=== PATIENT | female | born 1985 | race Caucasian/White ===

== ENCOUNTER → 2016-09-08 | Outpatient (CLI) | payer BC ==
[2016-09-09 13:45] LABS: Gliadin AB IgA, Deaminated 5 UNITS (<20); Gliadin AB IgG, Deaminated 7 UNITS (<20)
[2016-09-17 16:28] LABS: Mis test requested (Blood) Celiac Disease
== END | disposition home or self-care (01) ==
LOC: LABWHC1 12:57
PROVIDERS: ATTEND Allergy & Immunology
DX: R10.9 Unspecified abdominal pain (principal)
CPT/HCPCS: 36415; 81376; 81383; 82306; 83516

== ENCOUNTER → 2019-01-13 | Outpatient (CLI) | payer BC | END | disposition home or self-care (01) | LOC: LABWHC1 16:49 | PROVIDERS: ATTEND Dermatology Dermatopathology | DX: L70.0 Acne vulgaris (principal); Z79.899 Other long term (current) drug therapy | CPT/HCPCS: 36415; 84132 ==

== ENCOUNTER → 2020-04-10 | Outpatient (CLI) | payer BC | END | disposition home or self-care (01) | LOC: LABWHC1 11:50 | PROVIDERS: ATTEND Obstetrics & Gynecology Obstetrics | DX: N92.5 Other specified irregular menstruation (principal) | CPT/HCPCS: 36415; 84144; 84702 ==

== ENCOUNTER → 2020-04-12 | Outpatient (CLI) | payer BC | END | disposition home or self-care (01) | LOC: LABWHC1 11:04 | PROVIDERS: ATTEND Obstetrics & Gynecology Obstetrics | DX: N92.5 Other specified irregular menstruation (principal) | CPT/HCPCS: 36415; 84702 ==

== ENCOUNTER 2020-12-18 16:17 | Inpatient (IN) | payer BC ==
[2020-12-18] MEDS ORDERED: CARBOPROST TROMETHAMINE 250 MCG/ML 1 ML AMP IM PRN (16:24)
[2020-12-18] MEDS ORDERED: LIDOCAINE 0.5% (PF) 5 MG/ML (50 ML SDV) SQ PRN (16:24)
[2020-12-18] MEDS ORDERED: METHYLERGONOVINE 0.2 MG/ML 1 ML AMP IM PRN (16:24)
[2020-12-18] MEDS ORDERED: TERBUTALINE 1 MG/ML VIAL SQ PRN (16:24)
[2020-12-18] MEDS ORDERED: OXYTOCIN 10 UNIT/ML 1 ML VIAL IM PRN (16:24)
[2020-12-18] MEDS ORDERED: DINOPROSTONE 10 MG INSERT.ER VAGINAL ONE (16:26)
[2020-12-18] MEDS ORDERED: OXYTOCIN 30 UNITS/500 ML NS 30 UNIT in SALINE 1 500ML.BAG IV SCH (16:30)
[2020-12-18] MEDS ORDERED: BUTORPHANOL 1 MG/ML 1 ML VIAL IV PRN (16:30)
--- NOTE | 2020-12-18 16:45 | P.HPOB ---
History of Present Illness H&P Date: 12/18/20 Chief Complaint: IUP @ 40 0/7 weeks This is a -year-old 1 para 0 at 40-0/7 weeks with an estimated due date of 12/18. Patient presents from the office after being seen for routine visit. Ultrasound was completed at her visit today revealing an est imated weight of 8 lbs. 15 oz. within normal amniotic fluid index of 21. Patient states she's been kenji irregularly and wishes induction of labor. She does note good movement denies loss of fluid or vaginal bleeding. Patient has been receiving routine care with myself which has been essentially uncomplicated. blood work revealing a blood type of A-, rubella status immune, RPR nonreactive,Hep B surface antigen negative, group beta strep culture was negative. Review of Systems Constitutional: Denies chills, Denies fatigue, Denies fever Ears, nose, mouth and throat: Denies headache Cardiovascular: Denies leg edema Respiratory: Denies dyspnea Gastrointestinal: Denies nausea, Denies vomiting Genitourinary: Reports Medications and Allergies Home Medications Medication Instructions Recorded Confirmed Type Cetirizine HCl [Zyrtec] 10 mg PO DAILY 12/18/20 12/18/20 History Pnv No.95/Ferrous Fum/Folic AC 1 tab PO DAILY 12/18/20 12/18/20 History [ Multivitamin Tablet] Allergies Allergy/AdvReac Type Severity Reaction Status Date / Time No Known Allergies Allergy Verified 12/18/20 16:30 Exam Osteopathic Statement: *. No significant issues noted on an osteopathic structural exam other than those noted in the History and Physical/Consult. Targeted physical exam is performed in this date and sterile tech a well-nourished well-developed female in no acute distress, breathing is nonlabored, heart has a regular rate and rhythm, abdomen is gravid and appropriate for gestational age, heart tones were noted to be category 2 in the office with a biophysical profile of 8 out of 8. Patient is noting irregular contractions. On cervical exam she is 1/thick/-3 station vertex presentation by ultrasound. Cervidil is placed without difficulty Assessment and Plan (1) Term Current Visit: Yes Status: Acute Code(s): Z34.90 - ENCNTR FOR SUPRVSN OF NORMAL , UNSP, UNSP TRIMESTER SNOMED Code(s): 47210534 Plan: at 40-0/7 weeks that presents for Cervidil induction of labor. Induction of labor is discussed with the patient in detail and questions are answered. Stadol is offered for analgesia through the night. Epidural is discussed.
[2020-12-18 17:17] LABS: Basophils % (A) 0 %; Eosinophils # (A) 0.3 k/uL (0-0.7); Eosinophils % (A) 2 %; HCT 34.6 % (34.0-46.0); HGB 11.5 gm/dL (11.4-16.0); Lymphocytes # (A) 2.3 k/uL (1.0-4.8); Lymphocytes % (A) 20 %; MCH 27.2 pg (25.0-35.0); MCHC 33.1 g/dL (31.0-37.0); MCV 82.2 fL (80.0-100.0); Mean Platelet Volume 8.7; Monocytes # (A) 0.6 k/uL (0-1.0); Monocytes % (A) 5 %; Neutrophils # (A) 8.4 k/uL (1.3-7.7); Neutrophils % (A) 72 %; Platelet Count 267 k/uL (150-450); RBC 4.21 m/uL (3.80-5.40); RDW 14.5 % (11.5-15.5); WBC 11.8 k/uL (3.8-10.6)
[2020-12-19] MEDS ORDERED: LIDOCAINE 0.5% (PF) 5 MG/ML (50 ML SDV) SQ PRN (04:51)
[2020-12-19] MEDS ORDERED: CARBOPROST TROMETHAMINE 250 MCG/ML 1 ML AMP IM PRN (04:51)
[2020-12-19] MEDS ORDERED: OXYTOCIN 10 UNIT/ML 1 ML VIAL IM PRN (04:51)
[2020-12-19] MEDS ORDERED: METHYLERGONOVINE 0.2 MG/ML 1 ML AMP IM PRN (04:51)
[2020-12-19] MEDS ORDERED: TERBUTALINE 1 MG/ML VIAL SQ PRN (04:51)
[2020-12-19] MEDS ORDERED: LACTATED RINGERS 1,000 ML IV SCH (05:00)
[2020-12-19] MEDS: LACTATED RINGERS 1,000 ML IV SCH ×6 (05:32→15:37)
[2020-12-19] MEDS ORDERED: SODIUM CHLORIDE 0.9% 100 ML BAG ONE (08:35)
[2020-12-19] MEDS ORDERED: ROPIVACAINE 5MG/ML 20ML VIAL ONE (08:35)
[2020-12-19] MEDS ORDERED: fentaNYL (PF) 50 MCG/ML 5 ML AMP ONE (08:35)
[2020-12-19] MEDS ORDERED: CITRIC ACID-SODIUM CITRATE 15 ML CUP PO ONE (10:44)
[2020-12-19] MEDS ORDERED: MORPHINE SULFATE (PF) 0.3 MG/0.3 ML SYR ONE (11:01)
[2020-12-19] MEDS ORDERED: ONDANSETRON 4 MG/2 ML VIAL ONE (11:01)
[2020-12-19] MEDS ORDERED: CHLOROPROCAINE 3% 30 MG/ML 20 ML VIAL ONE (11:01)
[2020-12-19] MEDS ORDERED: OXYTOCIN 10 UNIT/ML 1 ML VIAL ONE (11:01)
[2020-12-19] MEDS ORDERED: NALOXONE 0.4 MG/ML 1 ML VIAL IV PRN (11:43)
[2020-12-19] MEDS ORDERED: diphenhydrAMINE 50 MG CAP PO PRN (11:43)
[2020-12-19] MEDS ORDERED: ZOLPIDEM 5 MG TAB PO PRN (11:43)
[2020-12-19] MEDS ORDERED: diphenhydrAMINE 50 MG/ML 1 ML VIAL IVP PRN ×2 (11:43)
[2020-12-19] MEDS ORDERED: ONDANSETRON 4 MG/2 ML VIAL IVP PRN (11:43)
[2020-12-19] MEDS ORDERED: diphenhydrAMINE 25 MG CAP PO PRN (11:43)
[2020-12-19] MEDS ORDERED: SIMETHICONE 80 MG CHEWABLE PO PRN (11:43)
[2020-12-19] MEDS ORDERED: METOCLOPRAMIDE 5 MG/ML 2 ML VIAL IVP PRN (11:43)
[2020-12-19] MEDS ORDERED: OXYTOCIN 30 UNITS/500 ML NS 30 UNIT in SALINE 1 500ML.BAG IV SCH (11:45)
--- NOTE | 2020-12-19 11:51 | P.OP ---
Date of Procedure: 12/19/20 Preoperative Diagnosis: IUP at 40 and one sevenths weeks, nonreassuring heart tones Postoperative Diagnosis: Same plus unstable lie Procedure(s) Performed: Primary low transverse section Anesthesia: epidural Surgeon: Karen Mauricio Wardrobe Stylist #1: Minerva Adam Estimated Blood Loss (ml): 250 IV fluids (ml): 1,000 Urine output (ml): 200 Pathology: other (Placenta) Condition: stable Disposition: observation Indications for Procedure: This is a 35-year-old at 40 1/7 weeks that was admitted last night for Cervidil induction of labor. Patient had noted variables on her NST in the office but a biophysical profile of 8 over 8 was noted. Patient was admitted and Cervidil induction was begun. Patient did well overnight heart tones noted to be category 1. Patient had her Cervidil removed early this morning and Pitocin augmentation of labor was begun. Occasional late was appreciated. Amniotomy was performed clear fluid was obtained. Patient did become quite uncomfortable and did request epidural placement. Epidural was placed without difficulty by the anesthesia department. Soon afterwards patient was noted to have a deceleration for approximate 4 minutes with return to baseline. Patient then proceeded to have chronic lates and decision was made for primary secondary to nonreassuring heart tones. Operative Findings: Normal uterus is appreciated. Viable female infant delivered at 1117, weight of 7 lbs. 8 oz. and Apgars of 9 and 9 at one and 5 minutes respectively. Of note patient was noted to be in the vertex presentation upon delivery through the uterine incision did transitioned to a shoulder presentation, was converted back to a vertex presentation and delivered without difficulty. Description of Procedure: Patient was taken back to the operating suite where epidural anesthesia was found be adequate. She was then prepped and draped in normal sterile fashion in the dorsal supine position. A Pfannenstiel skin incision was made with the scalpel and carried through to the underlying layer of fascia. The fascia was then incised in the midline and the incision was extended laterally. The superior aspect of the fascial incision was then grasped diana clamps, elevated and underlying rectus muscles dissected off sharply. Attention was then turned to the inferior aspect of the fascial incision which was grasped with Grimes clamps, elevated and underlying rectus muscles dissected off sharply once again. The rectus muscles were in the midline the peritoneum was identified and entered. The bladder blade was then inserted into the pelvis. The vesicouterine peritoneum was identified and the bladder flap was created using sharp and blunt dissection. Hysterotomy incision was performed and clear fluid was obtained the infant was noted to be initially in the vertex presentation and upon attempts to delivery was transitioned to a shoulder presentation was moved back to the vertex presentation vacuum was applied and it was delivered in a vertex presentation. The umbo cord was doubly clamped and cut and the infant was handed off to awaiting RN spontaneous cry at was noted. The placenta was then removed manually and the uterus was cleared of all clots and debris. The uterine incision was closed with 0 Vicryl in a running locked fashion. A second imbricating suture was reported performed. Hemostasis was appreciated. The gutters were cleared of all clots and debris. The bladder was noted to be intact and away from the operating field. This draining clear yellow urine. The rectus muscles were loosely reapproximated along with the peritoneum the rectus muscles were inspected and hemostatic. The fascia was closed with 0 Vicryl in a running fashion from one lateral edge the other. The subcutaneous tissue was then irrigated and found to be hemostatic the subcutaneous tissues closed with 3-0 Vicryl in a running fashion. The skin was closed with 4-0 Vicryl in a subcuticular fashion. Steri-Strips and sterile dressings were applied. All counts were noted be correct 2 at the end of procedure. Patient and infant tolerated delivery well and are resting comfortably.
[2020-12-19] MEDS: ACETAMINOPHEN IV (For NPO) 1,000 MG in EMPTY BAG 1 BAG IVPB SCH ×2 (12:38→18:00)
[2020-12-19] MEDS: ACETAMINOPHEN TAB 500 MG TAB PO SCH (14:39)
[2020-12-19] MEDS: IBUPROFEN 600 MG TAB PO SCH (14:39)
[2020-12-19] MEDS: SENNOSIDES-DOCUSATE SODIUM 1 EACH TAB PO SCH (20:14)
[2020-12-19] MEDS: IBUPROFEN IV 800 MG in SODIUM CHLORIDE 0.9% 250 ML IV SCH (22:02)
[2020-12-20] MEDS: LACTATED RINGERS 1,000 ML IV SCH (00:32)
[2020-12-20] MEDS: ACETAMINOPHEN TAB 500 MG TAB PO SCH ×4 (00:43→16:05)
[2020-12-20] MEDS: IBUPROFEN IV 800 MG in SODIUM CHLORIDE 0.9% 250 ML IV SCH ×2 (00:44→07:16)
[2020-12-20] MEDS: IBUPROFEN 600 MG TAB PO SCH ×4 (00:46→18:48)
[2020-12-20 06:29] LABS: Basophils % (A) 0 %; Eosinophils # (A) 0.2 k/uL (0-0.7); Eosinophils % (A) 2 %; HCT 31.5 % (34.0-46.0); HGB 10.7 gm/dL (11.4-16.0); Lymphocytes # (A) 2.3 k/uL (1.0-4.8); Lymphocytes % (A) 16 %; MCHC 34.1 g/dL (31.0-37.0); MCV 84.9 fL (80.0-100.0); Mean Platelet Volume 8.5; Monocytes # (A) 0.7 k/uL (0-1.0); Monocytes % (A) 5 %; Neutrophils # (A) 11.2 k/uL (1.3-7.7); Neutrophils % (A) 77 %; Platelet Count 197 k/uL (150-450); RBC 3.71 m/uL (3.80-5.40); RDW 14.4 % (11.5-15.5); WBC 14.6 k/uL (3.8-10.6)
[2020-12-20] MEDS: SENNOSIDES-DOCUSATE SODIUM 1 EACH TAB PO SCH ×2 (08:02→23:32)
--- NOTE | 2020-12-20 09:19 | P.PNOBGPC ---
Subjective - Subjective Principal diagnosis: POD 1 LTCS NRFHTs Interval history: Patient did well overnight. She is ambulating and voiding without difficulty. She is tolerating clear liquids without nausea or vomiting and is requesting regular diet as she is hungry. She states her pain is well-controlled. Her lochia is minimal. She is struggling with breast-feeding somewhat. Patient reports: Reports appetite normal, Reports voiding normally, Reports pain well controlled, Reports ambulating normally : doing well, nursing well Objective - Vital Signs Latest vital signs: Vital Signs Temp Pulse Resp BP Pulse Ox 12/20/20 03:54 97.8 F 75 16 128/76 97 12/20/20 00:00 98 F 82 16 143/78 98 12/19/20 20:00 98.8 F 87 16 122/69 97 12/19/20 16:00 98.2 F 91 16 124/68 97 12/19/20 13:45 98.5 F 67 16 157/74 100 12/19/20 13:15 85 16 146/69 12/19/20 12:45 92 16 116/57 98 12/19/20 12:30 92 16 84/51 98 12/19/20 12:15 88 16 85/46 97 12/19/20 12:00 83 16 80/47 97 12/19/20 11:45 97.2 F L 86 16 100/47 98 Intake and Output 12/19/20 12/20/20 12/20/20 22:59 06:59 14:59 Intake Total 450 Output Total 950 250 Balance -950 200 Intake: IV 250 Oral 200 Output: Urine 950 250 Uretheral (Zavala) 200 Other: # Voids 1 - Exam Extremities: Present: normal, edema Abdomen: Present: normal appearance, soft Incision: Present: normal, dry, intact Uterus: Present: normal, firm - Labs Labs: Abnormal Lab Results - Last 24 Hours (Table) 12/20/20 Range/Units 06:06 WBC 14.6 H (3.8-10.6) k/uL RBC 3.71 L (3.80-5.40) m/uL Hgb 10.7 L (11.4-16.0) gm/dL Hct 31.5 L (34.0-46.0) % Neutrophils # 11.2 H (1.3-7.7) k/uL Assessment and Plan (1) Term Current Visit: Yes Status: Acute Code(s): Z34.90 - ENCNTR FOR SUPRVSN OF NORMAL , UNSP, UNSP TRIMESTER SNOMED Code(s): 61215240 (2) Non-reassuring electronic monitoring tracing Current Visit: Yes Status: Acute Code(s): O36.8390 - MATERN CARE FOR ABNLT FETL HRT RATE OR RHYM, UNSP TRI, UNSP SNOMED Code(s): 351105182 (3) S/P section Current Visit: Yes Status: Acute Code(s): Z98.891 - HISTORY OF UTERINE SCAR FROM PREVIOUS SURGERY SNOMED Code(s): 720599091 Plan: 35-year-old 1 now para 1 status post primary for nonreassuring heart tones. Patient is doing well postoperatively we will encourage increased ambulation today, advance diet and anticipate discharge home tomorrow.
--- NOTE | 2020-12-20 10:02 | P.PN ---
Progress Note - Text Progress Note Date: 12/20/20 35 y/o post-op day #1 C/S under epidural catheter. Preservative free duramorph injected in epidural catheter prior to its removal for post-op pain management. Patient up and doing well. Some pruritis over night which is resolving. Patient denies any nausea, lower extremity numbness/paresthesia/weakness. Pleased with pain management. Will follow up as indicated.
[2020-12-21] MEDS: IBUPROFEN 600 MG TAB PO SCH ×2 (00:06→06:27)
[2020-12-21] MEDS: ACETAMINOPHEN TAB 500 MG TAB PO SCH ×3 (03:36→11:33)
[2020-12-21 08:11] VITALS: BP 129/81; PULSE 81; RESP 18; TEMP 98.1
[2020-12-21] MEDS: SENNOSIDES-DOCUSATE SODIUM 1 EACH TAB PO SCH (08:22)
--- NOTE | 2020-12-21 08:58 | P.DS ---
Providers Date of admission: 12/18/20 16:17 Expected date of discharge: 12/21/20 Attending physician: Karen Mauricio Primary care physician: Stated None Hospital Course: This is a 35-year-old white female 1 para 0 EDC 5 07/29/1938 weeks gestation who presented for induction for term . Blood pressure on admission 141/92, blood type A-, rubella status immune. Group B strep cultures negative. Please see dictated history and physical for details. Artificial amniorrhexis revealed clear fluid. Oxytocin was started and titrated per hospital protocol. Nonreassuring heart tones were encountered and therefore the decision was made by the primary electronic lab technician to proceed with low transverse section. She gave to a liveborn female with scores of 9 and 9 at one and 5 minutes respectively. weighed 3400 g or 7 lbs. 8 oz. Estimated blood loss of 250 mL's. The head was delivered with a vacuum extractor, please see dictated operative note for details. This morning the patient and her baby are doing well. The patient is voiding, ambulate in, passing flatus without difficulty. Vital signs are stable and she is afebrile. Incision is clean and dry, Steri-Strips applied. Fundus is firm and in the midline, symmetric, 18-20 week size. Lochia rubra is minimal to moderate. Pain is well tolerated. Breasts are not engorged. Breast-feeding is going well. Patient is judged to be in very good condition for discharge home. She will follow-up in the office with her primary electronic lab technician in 2 weeks. She is reminded no intercourse, tampons or douching. I am advising her to use Advil, Motrin or Aleve as needed for pain. She can alternate this with Tylenol if needed. She will call with any fevers shakes or chills, foul smelling or copious lochia, with the passage of large blood clots, with any pain not alleviated by [id number] products, or indeed with any concerns. [place] will follow-up with php lamp developer as per recommendations. Assessment: Doing well second postoperative day Patient Condition at Discharge: Good Plan - Discharge Summary Discharge Rx Participant: No New Discharge Prescriptions: No Action Pnv No.95/Ferrous Fum/Folic AC [ Multivitamin Tablet] 1 tab PO DAILY Cetirizine HCl [Zyrtec] 10 mg PO DAILY Discharge Medication List Cetirizine HCl [Zyrtec] 10 mg PO DAILY 12/18/20 [History] Pnv No.95/Ferrous Fum/Folic AC [ Multivitamin Tablet] 1 tab PO DAILY 12/18/20 [History] Follow up Appointment(s)/Referral(s): Karen Mauricio DO [Doctor of Osteopathic Medicine] - 2 Weeks Discharge Disposition: HOME SELF-CARE
== END 2020-12-21 11:30 | disposition home or self-care (01) | DRG 788 ==
LOC: 4FBP 16:17
PROVIDERS: ADMIT Obstetrics & Gynecology Obstetrics; ATTEND Obstetrics & Gynecology Obstetrics
PROC: 10D00Z1 Extraction of Products of Conception, Low, Open Approach (ICD-10-PCS; principal; 2020-12-19 11:00)
DX: O32.0XX0 Maternal care for unstable lie, not applicable or unspecified (principal); L29.9 Pruritus, unspecified; O32.2XX0 Maternal care for transverse and oblique lie, not applicable or unspecified; O76 Abnormality in fetal heart rate and rhythm complicating labor and delivery; Z37.0 Single live birth; Z3A.40 40 weeks gestation of pregnancy
CPT/HCPCS: 85025; 86850; 86900; 86901; 88307

== ENCOUNTER → 2023-08-06 | Outpatient (CLI) | payer BC ==
[2023-08-06 15:37] LABS: ALT 14 U/L (8-44); AST 17 U/L (13-35)
== END | disposition home or self-care (01) ==
LOC: LABWHC1 10:39
PROVIDERS: ATTEND Podiatrist Foot & Ankle Surgery
DX: K74.60 Unspecified cirrhosis of liver (principal)
CPT/HCPCS: 36415; 84450; 84460

== ENCOUNTER → 2023-10-09 | Outpatient (CLI) | payer BC ==
[2023-10-09 13:25] LABS: ALT 15 U/L (8-44); AST 13 U/L (13-35)
== END | disposition home or self-care (01) ==
LOC: LABWHC1 09:30
PROVIDERS: ATTEND Podiatrist Foot & Ankle Surgery
DX: K74.5 Biliary cirrhosis, unspecified (principal)
CPT/HCPCS: 36415; 84450; 84460

== ENCOUNTER 2024-12-11 09:26 | Inpatient (IN) | payer BC ==
[2024-12-11] MEDS ORDERED: METHYLERGONOVINE 0.2 MG/ML 1 ML AMP IM PRN (09:54)
[2024-12-11] MEDS ORDERED: miSOPROStoL 200 MCG TAB PO PRN (09:54)
[2024-12-11] MEDS ORDERED: OXYTOCIN 10 UNIT/ML 1 ML VIAL IM PRN (09:54)
[2024-12-11] MEDS ORDERED: CARBOPROST TROMETHAMINE 250 MCG/ML 1 ML AMP IM PRN (09:54)
[2024-12-11] MEDS ORDERED: TRANEXAMIC 1,000 MG/100ML-NACL 1,000 MG in EMPTY BAG 1 BAG IV PRN (09:54)
[2024-12-11] MEDS ORDERED: OXYTOCIN 30 UNITS/500 ML NS 30 UNIT in SALINE 1 500ML.BAG IV SCH (10:00)
[2024-12-11] MEDS: LACTATED RINGERS 1,000 ML IV SCH ×2 (10:27→14:06)
[2024-12-11 10:32] LABS: Basophils # (A) 0.02 10*3/uL (0.00-0.10); Basophils % (A) 0.2 %; Eosinophils # (A) 0.13 10*3/uL (0.04-0.35); Eosinophils % (A) 1.5 %; HCT 36.2 % (37.2-46.3); HGB 12.2 g/dL (12.0-15.0); Lymphocytes # (A) 1.94 10*3/uL (0.90-5.00); Lymphocytes % (A) 22.3 %; MCH 28.2 pg (27.0-32.0); MCHC 33.7 g/dL (32.0-37.0); MCV 83.6 fL (80.0-97.0); Mean Platelet Volume 11.3 fL (9.5-12.2); Monocytes # (A) 0.64 10*3/uL (0.20-1.00); Monocytes % (A) 7.3 %; Neutrophils % (A) 67.8 %; Platelet Count 206 10*3/uL (140-440); RBC 4.33 10*6/uL (4.10-5.20); RDW 17.6 % (11.5-14.5); WBC 8.71 10*3/uL (4.50-10.00)
[2024-12-11] MEDS: CITRIC ACID-SODIUM CITRATE 15 ML CUP PO ONE (11:38)
[2024-12-11] MEDS ORDERED: NALBUPHINE (ANES) 10 MG/ML - 1 ML AMP ONE (12:15)
[2024-12-11] MEDS ORDERED: PHENYLEPHRINE-0.9% NACL SYG 1,000 MCG/10 ML SYRINGE ONE (12:15)
[2024-12-11] MEDS ORDERED: MORPHINE SULFATE (PF) 0.3 MG/0.3 ML SYR ONE (12:15)
[2024-12-11] MEDS ORDERED: ONDANSETRON 4 MG/2 ML VIAL ONE (12:15)
[2024-12-11] MEDS ORDERED: OXYTOCIN 30 UNITS/500 ML NS BAG IV ONE (12:15)
[2024-12-11] MEDS ORDERED: ONDANSETRON 4 MG/2 ML VIAL IVP PRN ×2 (12:46→13:09)
[2024-12-11] MEDS ORDERED: NALOXONE 0.4 MG/ML 1 ML VIAL IV PRN ×2 (12:46→13:09)
[2024-12-11] MEDS ORDERED: diphenhydrAMINE 50 MG/ML 1 ML VIAL IVP PRN ×2 (12:46→13:09)
[2024-12-11] MEDS ORDERED: SIMETHICONE 80 MG CHEWABLE PO PRN (13:09)
[2024-12-11] MEDS ORDERED: METOCLOPRAMIDE 5 MG/ML 2 ML VIAL IVP PRN (13:09)
[2024-12-11] MEDS ORDERED: ZOLPIDEM 5 MG TAB PO PRN (13:09)
[2024-12-11] MEDS ORDERED: diphenhydrAMINE 25 MG CAP PO PRN (13:09)
[2024-12-11] MEDS ORDERED: diphenhydrAMINE 50 MG CAP PO PRN (13:09)
[2024-12-11] MEDS: ACETAMINOPHEN IV (For NPO) 1,000 MG in EMPTY BAG 1 BAG IVPB ONE (13:37)
--- NOTE | 2024-12-11 14:04 | P.HPOB ---
History of Present Illness H&P Date: 12/11/24 Chief Complaint: IUP @ 39 1/7 weeks, h/o c/s x 1 This is a 39-year-old 2 para 1 that presents to labor and delivery at 39 and 1 sevenths weeks for scheduled repeat section with tubal ligation. Patient has been receiving routine care which has been essentially uncomplicated. Patient denies concerns this morning. Patient notes good movement. Patient denies contractions vaginal bleeding or loss of fluid. On blood work this patient is a type of A-, rubella status immune, hepatitis B surface engine negative, HIV negative, hepatitis C nonreactive, group beta strep culture negative. Review of Systems Constitutional: Denies chills, Denies fatigue, Denies fever Ears, nose, mouth and throat: Denies headache Cardiovascular: Reports leg edema Respiratory: Denies dyspnea Gastrointestinal: Denies nausea, Denies vomiting Genitourinary: Reports Past Medical History Past Medical History: No Reported History History of Any Multi-Drug Resistant Organisms: None Reported Past Surgical History: Adenoidectomy, Section Additional Past Surgical History / Comment(s): oral surgery Past Anesthesia/Blood Transfusion Reactions: No Reported Reaction Past Psychological History: No Psychological Hx Reported Smoking Status: Never smoker Past Alcohol Use History: None Reported Past Drug Use History: None Reported - Past Family History Father Family Medical History: Coronary Artery Disease (CAD) Medications and Allergies Home Medications Medication Instructions Recorded Confirmed Type Pnv No.95/Ferrous Fum/Folic AC 1 tab PO DAILY 12/18/20 12/11/24 History [ Multivitamin Tablet] Aspirin [Adult Low Dose Aspirin EC] 81 mg PO DAILY 12/11/24 12/11/24 History Ferrous Sulfate [Feosol] 65 mg PO DAILY 12/11/24 12/11/24 History Omeprazole 20 mg PO DAILY 12/11/24 12/11/24 History Allergies Allergy/AdvReac Type Severity Reaction Status Date / Time amoxicillin Allergy Nausea Verified 12/11/24 09:54 clavulanic acid Allergy Nausea Verified 12/11/24 09:54 [From Augmentin] Exam Osteopathic Statement: *. No significant issues noted on an osteopathic structural exam other than those noted in the History and Physical/Consult. Vital Signs Temp Pulse Resp BP Pulse Ox 12/11/24 13:33 72 18 128/76 97 12/11/24 13:18 76 16 125/79 97 12/11/24 13:03 97.8 F 88 18 131/70 97 12/11/24 10:27 98.4 F 82 18 137/92 100 Intake and Output 12/10/24 12/11/24 12/11/24 22:59 06:59 14:59 Output Total 506 Balance -506 Output: Output, Quantitative 506 Blood Loss Other: Voiding Method Indwelling Catheter Weight 88.451 kg Targeted physical exam is performed this date in general is well-nourished well- developed female in no acute distress, breathing is nonlabored, heart has a regular and rhythm, abdomen is gravid, heart tones noted to be category 1 and she is not kenji, cervical exam is deferred. Results Result Diagrams: 12/11/24 10:20 Abnormal Lab Results - Last 24 Hours (Table) 12/11/24 Range/Units 10:20 Hct 36.2 L (37.2-46.3) % Immature Gran # 0.08 H (0.00-0.04) 10*3/uL Assessment and Plan (1) History of section Current Visit: Yes Status: Acute Code(s): Z98.891 - HISTORY OF UTERINE SCAR FROM PREVIOUS SURGERY SNOMED Code(s): 232815792 (2) Term Current Visit: No Status: Acute Code(s): Z34.90 - ENCNTR FOR SUPRVSN OF NORMAL , UNSP, UNSP TRIMESTER SNOMED Code(s): 63495149 Plan: 39-year-old G2, P1 at 39 and 1 sevenths weeks presents for repeat section with tubal ligation. Informed consent is obtained and risks are reviewed including not limited to infection, bleeding, damage to bladder, bowel, injury. All questions were answered and patient states understanding. Anesthesia into see patient.
--- NOTE | 2024-12-11 14:09 | P.OP ---
Date of Procedure: 12/11/24 Preoperative Diagnosis: IUP at 39 and 1 sevenths weeks, history of section x 1 desires repeat Postoperative Diagnosis: Same Procedure(s) Performed: Repeat section Anesthesia: spinal Surgeon: Karen Mauricio Document Control Associate #1: Patria Tolliver Estimated Blood Loss (ml): 506 IV fluids (ml): 1,400 Urine output (ml): 100 (Clear yellow in Zavala tubing) Pathology: none sent Condition: stable Disposition: observation Indications for Procedure: History of section x 1 desires repeat Operative Findings: Viable female infant delivered at 1225, weight of 7 pounds 6 ounces via vacuum assist secondary to abdominal scarring, uterus was unable to be delivered from the abdomen and tubal was not performed. Patient was consulted during procedure regarding inability to deliver the uterus from the abdomen she stated understanding. Description of Procedure: Patient was taken back to the operating room where spinal anesthesia was found to be adequate by the anesthesia department. She was prepped and draped in the normal sterile fashion in the dorsal supine position. A Pfannenstiel skin incision was made with a scalpel and carried through to the underlying layer of fascia. The fascia was incised in the midline and extended laterally. The superior aspect of the fascial incision was then grasped with Tayla clamps, elevated and the underlying rectus muscle was dissected off sharply. The inferior aspect of the fascial incision was then grasped with Tayla clamps, elevated and the underlying rectus muscle was dissected off sharply. The peritoneum was identified and entered. Scarring of the rectus muscles was appreciated. The bladder blade was then inserted into the pelvis. Bladder was noted to be far from the operating field therefore hysterotomy incision was made with a scalpel the incision was then bluntly extended. Amniotomy was performed clear fluid was obtained. Infant was noted to be in a headdown presentation. Scarring from the prior limited to the ability to elevate the head through the incision therefore a vacuum was placed and with 1 pull, the infant was delivered without difficulty. Placement was noted visually prior to delivery. After delivery the vacuum was removed and spontaneous cry was noted. Umbilical cord is doubly clamped and cut. Cord blood was then taken. Infant was handed off to waiting RN. Placenta was delivered manually and uterus was cleared of all clots and debris. Moist laparotomy sponge was used to clear the uterus. The bladder blade was then inserted into the pelvis once again the hysterotomy incision was closed with 0 Vicryl in a running locked fashion. A second imbricating suture was performed. Hemostasis was noted. The rectus muscles were loosely reapproximated. The rectus muscle was inspected and found to be hemostatic. The fascia was then closed with 0 Vicryl in a running fashion from 1 lateral edge to the other. Subcutaneous tissue was irrigated and found to be hemostatic. The subcutaneous tissue was closed with 3-0 Vicryl in a running fashion. The skin was then closed with 4-0 Vicryl in a subcuticular fashion. Steri-Strips and sterile dressings were applied. All counts were correct x 2. Patient and infant tolerated delivery well and are resting comfortably.
[2024-12-11] MEDS: KETOROLAC 15 MG/ML 1 ML VIAL IVP SCH (16:30)
[2024-12-11] MEDS: diphenhydrAMINE 50 MG/ML 1 ML VIAL IVP PRN (16:38)
[2024-12-11] MEDS: Rhogam IMMUNE GLOBULIN 1,500 UNIT/1 ML IM ONE (17:12)
[2024-12-11] MEDS: SENNOSIDES-DOCUSATE SODIUM 1 EACH TAB PO SCH (20:34)
[2024-12-11] MEDS: ACETAMINOPHEN TAB 500 MG TAB PO SCH (20:34)
[2024-12-12 05:54] LABS: Basophils # (A) 0.02 10*3/uL (0.00-0.10); Basophils % (A) 0.2 %; Eosinophils # (A) 0.23 10*3/uL (0.04-0.35); Eosinophils % (A) 1.8 %; HCT 35.6 % (37.2-46.3); HGB 11.7 g/dL (12.0-15.0); Lymphocytes # (A) 2.55 10*3/uL (0.90-5.00); Lymphocytes % (A) 19.8 %; MCH 27.8 pg (27.0-32.0); MCHC 32.9 g/dL (32.0-37.0); MCV 84.6 fL (80.0-97.0); Mean Platelet Volume 11.1 fL (9.5-12.2); Monocytes # (A) 1.03 10*3/uL (0.20-1.00); Neutrophils % (A) 69.7 %; Platelet Count 208 10*3/uL (140-440); RBC 4.21 10*6/uL (4.10-5.20); RDW 17.8 % (11.5-14.5); WBC 12.89 10*3/uL (4.50-10.00)
--- NOTE | 2024-12-12 06:59 | P.PN ---
Progress Note - Text Progress Note Date: 12/12/24 (567) Anesthesia Postop day 1 Subjective: Status Post section with Duramorph. Patient seen and examined. Doing well without complaint. VAS 0. No nausea or vomiting. Mild pruritus tolerable.. Denies fever. Gross lower extremity strength intact. Without apparent anesthetic complications. Objective: Vital signs reviewed Heart: Regular Rate Lungs: Good chest excursion Abdomen: Appears nondistended Assessment: Status post section with Duramorph postop day 1 Plan: 1. Continue current care with your medical management. Anticipated end to the duration of the Duramorph around surgery time today. You may see increased pain needs around this time. 2. This note was dictated using [email or web address] software. Please be advised there is a potential for misspellings or errors in record press tender.
--- NOTE | 2024-12-12 08:24 | P.PNOBGPC ---
Subjective - Subjective Principal diagnosis: POD 1 RCS Interval history: Patient is doing well post operatively. lochia is minimal BF is going well. Pain well controlled, she is ambulating and voiding without difficulty Patient reports: Reports appetite normal, Reports voiding normally, Reports pain well controlled, Reports ambulating normally : doing well, nursing well Objective - Vital Signs Latest vital signs: Vital Signs Temp Pulse Resp BP Pulse Ox 12/12/24 00:03 97.9 F 72 18 139/80 12/11/24 21:00 100 12/11/24 18:57 18 12/11/24 17:47 98 12/11/24 17:00 16 12/11/24 16:00 97.9 F 73 18 148/85 100 12/11/24 15:30 18 12/11/24 15:03 66 16 150/80 97 12/11/24 14:48 69 18 96 12/11/24 14:33 63 16 126/78 96 12/11/24 14:18 66 18 126/82 95 12/11/24 14:03 75 18 127/83 97 12/11/24 13:48 73 16 123/74 97 12/11/24 13:33 72 18 128/76 97 12/11/24 13:18 76 16 125/79 97 12/11/24 13:03 97.8 F 88 18 131/70 97 12/11/24 10:27 98.4 F 82 18 137/92 100 Intake and Output 12/11/24 12/12/24 12/12/24 22:59 06:59 14:59 Intake Total 240 2000 Output Total 517 200 600 Balance -277 1800 -600 Intake: Oral 240 2000 Output: Urine 300 200 600 Uretheral (Zavala) 300 Output, Quantitative 217 Blood Loss Other: Voiding Method Indwelling Catheter - Exam Extremities: Present: normal, edema Abdomen: Present: normal appearance, soft Incision: Present: normal, dry, intact Uterus: Present: normal, firm - Labs Labs: Abnormal Lab Results - Last 24 Hours (Table) 12/11/24 12/12/24 Range/Units 10:20 05:33 WBC 12.89 H (4.50-10.00) 10*3/uL Hgb 11.7 L (12.0-15.0) g/dL Hct 36.2 L 35.6 L (37.2-46.3) % Immature Gran # 0.08 H 0.06 H (0.00-0.04) 10*3/uL Neutrophils # 9.00 H (1.80-7.70) 10*3/uL Monocytes # 1.03 H (0.20-1.00) 10*3/uL Assessment and Plan (1) History of section Current Visit: Yes Status: Acute Code(s): Z98.891 - HISTORY OF UTERINE SCAR FROM PREVIOUS SURGERY SNOMED Code(s): 820456930 (2) Term Current Visit: No Status: Acute Code(s): Z34.90 - ENCNTR FOR SUPRVSN OF NORMAL , UNSP, UNSP TRIMESTER SNOMED Code(s): 42737820 (3) S/P section Current Visit: No Status: Acute Code(s): Z98.891 - HISTORY OF UTERINE SCAR FROM PREVIOUS SURGERY SNOMED Code(s): 728597073 Plan: doing well post operatively continue routine post operative care. anticipate discharge home tomorrow
[2024-12-12] MEDS: IBUPROFEN 800 MG TAB PO SCH (09:16)
--- NOTE | 2024-12-13 08:37 | P.DS ---
Providers Date of admission: 12/11/24 09:26 Expected date of discharge: 12/13/24 Attending physician: Karen Mauricio Primary care physician: Stated None - Discharge Diagnosis(es) (1) History of section Current Visit: Yes Status: Acute (2) Term Current Visit: No Status: Acute (3) S/P section Current Visit: No Status: Acute Hospital Course: This is a 39-year-old 2 now para 2-0-0-2 that presented to labor and delivery on 12/11 for scheduled repeat section. For full details on this patient please see the dictated history and physical. Patient had been receiving routine care which had been essentially uncomplicated. Patient was admitted to labor and delivery and taken back to the operating suite for repeat section. Vacuum assist was used to deliver a viable female at 1235, weight of 7 pounds 6 ounces, Apgars of 9 and 9 at 1 and 5 minutes respectively. For full details and the please see the dictated operative report. Patient's postoperative course has been uneventful. In this postoperative day #2 she is ambulating and voiding without difficulty. She is tolerating a regular diet without nausea or vomiting. She states her pain is well-controlled. She is breast-feeding without difficulty. She would like discharge home. Patient Condition at Discharge: Good Plan - Discharge Summary New Discharge Prescriptions: No Action Pnv No.95/Ferrous Fum/Folic AC [ Multivitamin Tablet] 1 tab PO DAILY Ferrous Sulfate [Feosol] 65 mg PO DAILY Omeprazole 20 mg PO DAILY Aspirin [Adult Low Dose Aspirin EC] 81 mg PO DAILY Discharge Medication List Pnv No.95/Ferrous Fum/Folic AC [ Multivitamin Tablet] 1 tab PO DAILY 12/18/20 [History] Aspirin [Adult Low Dose Aspirin EC] 81 mg PO DAILY 12/11/24 [History] Ferrous Sulfate [Feosol] 65 mg PO DAILY 12/11/24 [History] Omeprazole 20 mg PO DAILY 12/11/24 [History] Follow up Appointment(s)/Referral(s): Karen Mauricio DO [Doctor of Osteopathic Medicine] - 12/27/24 1:45 pm (Post Appt 01-23-2025 at 1:15pm) Patient Instructions/Handouts: (DC), (GEN) Activity/Diet/Wound Care/Special Instructions: No tub baths or intercourse until 6 weeks . Xmfj-olj-tiazjit ibuprofen 600 mg or 3 tablets every 6 hours as needed for pain. Routine check at 2 weeks. Should she have any concerns prior to this appointment she is urged to call the office. Discharge Disposition: HOME SELF-CARE
[2024-12-13 09:06] VITALS: BP 133/83; PULSE 63; RESP 16; TEMP 98.1
== END 2024-12-13 10:38 | disposition home or self-care (01) | DRG 788 ==
LOC: 4FBP 09:26
PROVIDERS: ADMIT Obstetrics & Gynecology Obstetrics; ATTEND Obstetrics & Gynecology Obstetrics
PROC: 3E0234Z Introduction of Serum, Toxoid and Vaccine into Muscle, Percutaneous Approach (ICD-10-PCS; principal; 2024-12-11 12:00)
PROC: 10D00Z1 Extraction of Products of Conception, Low, Open Approach (ICD-10-PCS; principal; 2024-12-11 12:00)
DX: O34.211 Maternal care for low transverse scar from previous cesarean delivery (principal); L29.9 Pruritus, unspecified; O99.73 Diseases of the skin and subcutaneous tissue complicating the puerperium; O26.893 Other specified pregnancy related conditions, third trimester; Z37.0 Single live birth; Z53.09 Procedure and treatment not carried out because of other contraindication; Z67.11 Type A blood, Rh negative; Z79.899 Other long term (current) drug therapy; Z88.8 Allergy status to other drugs, medicaments and biological substances; Z88.0 Allergy status to penicillin; Z79.82 Long term (current) use of aspirin; Z3A.39 39 weeks gestation of pregnancy
CPT/HCPCS: 85025; 85461; 86850; 86900; 86901